=== PATIENT | female | born 1930 | race Caucasian/White ===

== ENCOUNTER → 2017-01-21 | Outpatient (CLI) | payer BC ==
[~2017-01-21] MED LIST: ACET-1175 PO; ALEN70TA4 PO; AMLO-110 PO; CETI10TA10 PO; CHOL100010 PO; DIPH25TA24 PO; ESCI1TAB6 PO; FURO-85 PO; LISI-461 PO; LORA-741 PO; MULT-506 PO; NRV5 PO; OMEG10007 PO; ONDA4TAB10 SL; POTA10CA28 PO; SIMV20TA2 PO; ZCR20 PO; [UNRECOGNIZED DRUG - CODE] PO
[2017-01-21 12:55] LABS: BLOOD UREA NITROGEN 14 mg/dl (7-18); BUN/CREATININE RATIO 13.6 (10-20); CARBON DIOXIDE 31 mmol/L (21-32); CHLORIDE 107 mmol/L (98-107); GLUCOSE 78 mg/dl (70-99); POTASSIUM 3.5 mmol/L (3.5-5.1); SODIUM 144 mmol/L (136-145)
== END | disposition home or self-care (01) ==
LOC: C.LABSALHI 09:43
PROVIDERS: ATTEND Nurse Practitioner Family
DX: I10 Essential (primary) hypertension (principal)

== ENCOUNTER 2017-06-21 20:29 | Emergency (ER) | payer BC ==
[~2017-06-21] VITALS: Ht 149.9 cm; Wt 44.2 kg
[~2017-06-21 20:29] MED LIST changes: -AMLO-110 PO; -LORA-741 PO; -ONDA4TAB10 SL; -SIMV20TA2 PO
[2017-06-21] MEDS ORDERED: ONDANSETRON INJ 2 MG/ML 2 ML VIAL IV STA (20:33)
[2017-06-21] MEDS ORDERED: SODIUM CHLORIDE 0.9% 500ML 500 ML IV STA (20:33)
--- NOTE | 2017-06-21 20:37 | EMERGENCY ROOM VISIT NOTE ---
History Report prepared by Linda: Mehdi Capone Under the Supervision of: Dr. Sean Thomas M.D. First contact with patient: 20:30 Chief Complaint: FALL Stated Complaint: Fall History of Present Illness The patient is a 87 year old female who presents to the Emergency Room with complaints of a fall that occurred this evening. This history is limited secondary to the patient's mental status. Per EMS, the patient was found with mulch in her hair. When they arrived, she was complaining of nausea, vomiting, and dizziness. A couple of minutes later, she said she had no complaints. At baseline, she is confused, but usually not this much. She is currently complaining of generalized pain and chills. She denies abdominal pain. Source of History: patient, EMS History Limited By: AMS Onset: This evening Position: other (Global) Associated Symptoms: + chills, No abdominal pain Note: She is complaining of generalized pain. Review of Systems See HPI for pertinent positives & negatives. A total of 10 systems reviewed and were otherwise negative. Past Medical & Surgical Medical Problems: (1) Dementia (2) History of hyponatremia (3) History of migraine (4) Hypercholesterolemia (5) Hypertension (6) Osteoporosis Surgical Problems: (1) History of hysterectomy (2) S/P cataract surgery Family History Hypertension Social History Smoking Status: Never Smoker Alcohol Use: none Drug Use: none Marital Status: Occupation Status: retired Current/Historical Medications Scheduled Amlodipine (Norvasc), 5 MG PO DAILY Cetirizine Hcl (Zyrtec), 5 MG PO QPM Cholecalciferol (Vitamin D), 2,000 INTER.UNIT PO DAILY Escitalopram Oxalate (Lexapro), 5 MG PO DAILY Fish Oil (Shallowater-3), 1,200 MG PO DAILY Furosemide (Lasix), 20 MG PO 3XWK Lisinopril (Zestril), 10 MG PO DAILY Multivitamin (Multivitamin), 1 TABLET PO DAILY Ondasetron Odt (Zofran Odt), 4 MG SL Q6H Oyster Shell (Oyster Calcium), 500 MG PO DAILY Potassium Chloride (Micro-K Ext Rel), 10 MEQ PO 3XWK Simvastatin (Zocor), 20 MG PO QPM Scheduled PRN Acetaminophen (Tylenol), 650 MG PO Q4-6H PRN for Pain or Fever Diphenhydramine Hcl (Benadryl), 25-50 MG PO Q4-6H PRN for ALLERGIC REACTION Lorazepam (Ativan), 0.5 MG PO BID PRN for Anxiety Allergies Coded Allergies: No Known Allergies (Unverified , 11/30/12) Physical Exam Vital Signs Date Time Temp Pulse Resp B/P (MAP) Pulse Ox O2 Delivery O2 Flow Rate FiO2 06/21/17 23:28 88 18 146/78 92 06/21/17 22:29 84 140/70 93 Room Air 06/21/17 21:54 75 19 142/81 94 Room Air 06/21/17 21:22 76 06/21/17 20:48 95 Room Air 06/21/17 20:46 36.8 77 22 185/77 95 Room Air Physical Exam GENERAL: Patient is a healthy-appearing well-nourished female. Able to walk. No signs of trauma. HEAD: Normocephalic atraumatic EYES: Ocular movements intact pupils equal and react to light OROPHARYNX mucous membranes are moist no exudates present no erythema or edema present NECK: Supple no nuchal rigidity CHEST: Good equal expansion LUNGS: Clear and equal to auscultation CARDIAC: Normal S1 and S2 ABDOMEN: Soft nontender no guarding BACK: No CVA tenderness EXTREMITIES: No pain upon palpation normal muscle strength in all groups no clubbing cyanosis or edema NEURO: Patient is pleasantly confused. Medical Decision & Procedures ER Provider Diagnostic Interpretation: Radiology results as stated below per my review and radiologist interpretation: CT OF THE HEAD WITHOUT CONTRAST CLINICAL HISTORY: Fall. Emesis. COMPARISON STUDY: Head CT April 28, 2015. CT DOSE: 756.06 mGy.cm TECHNIQUE: Helical axial images of the head were obtained without IV contrast. Automated exposure control was utilized for the study. A dose lowering technique was utilized adhering to the principles of ALARA. FINDINGS: No acute intracranial hemorrhage, midline shift or mass effect is present. Ventricular system is stable. The basilar cisterns are patent. There are no extra-axial collections. White matter hypodensity suggests small vessel disease. There are no findings to suggest acute dural sinus thrombosis or acute territorial infarct. The appearance of the brain is similar to prior exam. There is extensive intracranial vascular calcification. Apparent defect of the left posterior arch of C1 is partially imaged on this exam. This is chronic. There is no calvarial fracture. IMPRESSION: No acute intracranial findings. Electronically signed by: Iker Trimble M.D. 06/21/2017 10:18 PM Dictated Date/Time: 06/21/2017 10:14 PM CHEST ONE VIEW PORTABLE CLINICAL HISTORY: Altered third mental status. COMPARISON STUDY: Chest radiograph June 05, 2015. FINDINGS: Lung volumes are normal. No pneumothorax or pleural effusion is present. There are no evidence of pulmonary edema. Cardiomediastinal silhouette is unremarkable. No consolidation is identified. IMPRESSION: No acute cardiopulmonary findings. Electronically signed by: Iker Trimble M.D. 06/21/2017 9:02 PM Dictated Date/Time: 06/21/2017 9:[address] OF THE ABDOMEN AND PELVIS WITH CONTRAST CLINICAL HISTORY: Diffuse abdominal pain. Vomiting. Fall. COMPARISON STUDY: None. TECHNIQUE: Following IV administration of 94 mL of Optiray-320, axial images of the abdomen and pelvis were obtained from the lung bases to the proximal femurs. Images were reviewed in the axial, sagittal, and coronal planes. IV contrast was administered without complication. A dose lowering technique was utilized adhering to the principles of ALARA. FINDINGS: A 7 mm hypodense right hepatic lobe lesion likely reflects a cyst. A 1.4 cm lateral segment hepatic cyst is also present. There is no evidence of traumatic injury to the liver, spleen, adrenal glands, kidneys or pancreas. There is probable contrast within both collecting systems. This exam is mildly compromised by motion artifact. There is extensive atherosclerotic plaque of the abdominal aorta and branch vessels. There is no pancreatic ductal dilatation. Mild biliary ductal dilatation is noted. The bladder is mildly distended. There is no evidence for a bowel obstruction. A zshb-kd-kiekejeb amount of stool is noted within the colon. No acute lumbar spine or pelvic fracture is identified. There is a mild L1 compression fracture involving the superior endplate which is likely old. IMPRESSION: 1. No acute findings within the abdomen or pelvis. 2. Mild biliary ductal dilatation which could be correlated with obstructive liver function tests. 3. Moderate distention of the bladder. Electronically signed by: Iker Trimble M.D. 06/21/2017 10:30 PM Dictated Date/Time: 06/21/2017 10:18 PM Laboratory Results 06/21/17 20:35 Red Blood Count 4.43, Mean Corpuscular Volume 92.3, Mean Corpuscular Hemoglobin 30.9, Mean Corpuscular Hemoglobin Concent 33.5, Mean Platelet Volume 10.8, Neutrophils (%) (Auto) 52.6, Lymphocytes (%) (Auto) 32.4, Monocytes (%) (Auto) 11.5, Eosinophils (%) (Auto) 2.8, Basophils (%) (Auto) 0.7, Neutrophils # (Auto ) 3.20, Lymphocytes # (Auto) 1.97, Monocytes # (Auto) 0.70, Eosinophils # (Auto ) 0.17, Basophils # (Auto) 0.04 06/21/17 20:35 Test 06/21/17 20:35 06/21/17 20:59 06/21/17 21:09 06/21/17 21:45 White Blood Count 6.08 K/uL (4.8-10.8) Red Blood Count 4.43 M/uL (4.2-5.4) Hemoglobin 13.7 g/dL (12.0-16.0) Hematocrit 40.9 % (37-47) Mean Corpuscular Volume 92.3 fL (80-100) Mean Corpuscular Hemoglobin 30.9 pg (25-34) Mean Corpuscular Hemoglobin Concent 33.5 g/dl (32-36) Platelet Count 263 K/uL (130-400) Mean Platelet Volume 10.8 fL (7.4-10.4) Neutrophils (%) (Auto) 52.6 % Lymphocytes (%) (Auto) 32.4 % Monocytes (%) (Auto) 11.5 % Eosinophils (%) (Auto) 2.8 % Basophils (%) (Auto) 0.7 % Neutrophils # (Auto) 3.20 K/uL (1.4-6.5) Lymphocytes # (Auto) 1.97 K/uL (1.2-3.4) Monocytes # (Auto) 0.70 K/uL (0.11-0.59) Eosinophils # (Auto) 0.17 K/uL (0-0.5) Basophils # (Auto) 0.04 K/uL (0-0.2) RDW Standard Deviation 43.4 fL (36.4-46.3) RDW Coefficient of Variation 12.8 % (11.5-14.5) Immature Granulocyte % (Auto) 0.0 % Immature Granulocyte # (Auto) 0.00 K/uL (0.00-0.02) Est Creatinine Clear Calc Drug Dose 23.7 ml/min Estimated GFR () 51.5 Estimated GFR (Non- 44.5 BUN/Creatinine Ratio 14.9 (10-20) Calcium Level 9.8 mg/dl (8.5-10.1) Total Bilirubin 0.3 mg/dl (0.2-1) Direct Bilirubin < 0.1 mg/dl (0-0.2) Aspartate Amino Transf (AST/SGOT) 34 U/L (15-37) Alanine Aminotransferase (ALT/SGPT) 30 U/L (12-78) Alkaline Phosphatase 88 U/L (45-117) Total Creatine Kinase 59 U/L (26-192) Creatine Kinase MB 2.0 ng/ml (0.5-3.6) Creatine Kinase MB Ratio 3.4 (0-3.0) Troponin I 0.018 ng/ml (0-0.045) Total Protein 7.9 gm/dl (6.4-8.2) Albumin 4.4 gm/dl (3.4-5.0) Thyroid Stimulating Hormone (TSH) 6.850 uIu/ml (0.300-4.500) Bedside Glucose 98 mg/dl (70-90) Bedside Hemoglobin 14.3 g/dl (12.0-16.0) Bedside Hematocrit 42 % (37-47) Bedside Sodium 141 mEq/L (135-144) Bedside Potassium 3.4 mEq/L (3.3-5.0) Bedside Chloride 102 mEq/L (101-112) Bedside Total CO2 28 mEq/l (24-31) Anion Gap 16.0 mmol/L (16-25) Bedside Blood Urea Nitrogen 18 mg/dl (7-18) Bedside Creatinine 1.1 mg/dl (0.6-1.3) Bedside Glucose (other) 102 mg/dl (70-99) Bedside Ionized Calcium (Tam) 1.17 mmol/l (1.12-1.32) Urine Color YELLOW Urine Appearance CLEAR (CLEAR) Urine pH 8.0 (4.5-7.5) Urine Specific [place] 1.014 (1.000-1.030) Urine Protein NEG (NEG) Urine Glucose (UA) NEG (NEG) Urine Ketones NEG (NEG) Urine Occult Blood NEG (NEG) Urine Nitrite NEG (NEG) Urine Bilirubin NEG (NEG) Urine Urobilinogen NEG (NEG) Urine Leukocyte Esterase TRACE (NEG) Urine WBC (Auto) 1-5 /hpf (0-5) Urine RBC (Auto) 0-4 /hpf (0-4) Urine Hyaline Casts (Auto) 0 /lpf (0-5) Urine Epithelial Cells (Auto) 10-20 /lpf (0-5) Urine Bacteria (Auto) NEG (NEG) Labs reviewed by ED physician. Medications Administered Medications (Trade) Dose Ordered Sig/Balta Route Start Time Stop Time Status Last Admin Dose Admin Sodium Chloride 500 ml @ 999 mls/hr Q31M STAT IV 06/21/17 20:33 06/21/17 21:03 DC 06/21/17 21:07 999 MLS/HR Ondansetron HCl (Zofran Inj) 4 mg NOW STAT IV 06/21/17 20:33 06/21/17 20:36 DC 06/21/17 21:07 4 MG Ondansetron HCl (ZOFRAN ODT 4MG Home Pack) 1 homepack UD STAT PO 06/21/17 22:35 06/21/17 22:36 DC 06/21/17 23:28 1 HOMEPACK ECG Indication: other (Trauma) Rate (beats per minute): 69 Rhythm: normal sinus Findings: no acute ischemic change, no ectopy ED Course 2030: Past medical records reviewed. The patient was evaluated in room C11B. A complete history and physical examination was performed. 2032: Ordered Zofran Inj 4 mg IV, Sodium Chloride 500 ml @ 999 mls/hr IV 2234: Ordered Ondansetron HCl 1 homepack PO 2242: Upon reexamination the patient is resting. I discussed results and treatment plan with the patient. She verbalizes agreement and understanding. The patient is ready for discharge. Medical Decision Differential diagnosis: Etiologies such as metabolic, infection, hypo/hyperglycemia, electrolyte abnormalities, cardiac sources, intracerebral event, toxicologic, neurologic, as well as others were entertained. This is an 87-year-old female who presents emergency department with no complaints. Per EMS report the patient was vomiting and was found down at her snf. The patient was sent for CAT scan of the head as well as abdomen pelvis however there does not appear to be in any acute process going on. The patient has normal EKG along with normal CK-MB troponin fractions. An IV was established, the patient given normal saline bolus, Zofran. Repeat examination revealed much improvement the patient's symptoms. I do feel that the patient as well as to be discharged back to her snf to follow-up with her primary care physician. Patient was in agreement with the treatment plan. Medication Reconcilliation Current Medication List: was personally reviewed by me Blood Pressure Screening Patient's blood pressure: Elevated blood pressure Blood pressure disposition: Elevated BP felt to be situational Impression Primary Impression: Fall Scribe Attestation The scribe's documentation has been prepared under my direction and personally reviewed by me in its entirety. I confirm that the note above accurately reflects all work, treatment, procedures, and medical decision making performed by me. Departure Information Dispostion Home / Self-Care Prescriptions Ondasetron Odt (ZOFRAN ODT) 4 Mg Tab 4 MG SL Q6H for Nausea, #6 TAB Prov: Sean Thomas MD 06/21/17 Referrals Kitty GreyC.R.N.P. (PCP) Forms HOME CARE DOCUMENTATION FORM, IMPORTANT VISIT INFORMATION Patient Instructions ED Fall Dizziness Weakn Balance, ED Gastroenteritis Viral, My [facility], Nausea Vomit Control Additional Instructions You have been examined and treated today on an emergency basis only. This is not a substitute for, or an effort to provide, complete comprehensive medical care. It is impossible to recognize and treat all injuries or illnesses in a single emergency department visit. It is therefore important that you follow up closely with Your PCP. Call as soon as possible for an appointment. Thank you for your time and consideration. I look forward to speaking with you again soon. Please don't hesitate to call us if you have any questions. Problem Qualifiers Primary Impression: Fall Encounter type: initial encounter Qualified Codes: W19.XXXA - Unspecified fall, initial encounter
[2017-06-21] MEDS ORDERED: OPTIRAY 320 IV PRN (20:45)
[2017-06-21 20:46] VITALS: TEMP 36.8; Ht 149.9 cm; Wt 44.2 kg
[2017-06-21 20:48] VITALS: O2SAT 95
[2017-06-21 20:59] LABS: HEMATOCRIT 40.9 % (37-47); MEAN CELL VOLUME 92.3 fL (80-100); MEAN CORPUSCULAR HEMOGLOBIN 30.9 pg (25-34); MEAN CORPUSCULAR HGB CONC 33.5 g/dl (32-36); RED BLOOD COUNT 4.43 M/uL (4.2-5.4); WHITE BLOOD COUNT 6.08 K/uL (4.8-10.8)
[2017-06-21 21:00] LABS: BASO % 0.7 %; BASO ABS # 0.04 K/uL (0-0.2); COMPLETE YES; EOS % 2.8 %; LYMPH % 32.4 %; LYMPH ABS # 1.97 K/uL (1.2-3.4); MEAN PLATELET VOLUME 10.8 fL (7.4-10.4); MONO % 11.5 %; NEUT % 52.6 %; PLATELET COUNT 263 K/uL (130-400)
--- NOTE | 2017-06-21 21:03 | DIAGNOSTIC IMAGING REPORT ---
CHEST ONE VIEW PORTABLE CLINICAL HISTORY: Altered third mental status. COMPARISON STUDY: Chest radiograph June 05, 2015. FINDINGS: Lung volumes are normal. No pneumothorax or pleural effusion is present. There are no evidence of pulmonary edema. Cardiomediastinal silhouette is unremarkable. No consolidation is identified. IMPRESSION: No acute cardiopulmonary findings. Electronically signed by: Iker Trimble M.D. 06/21/2017 9:02 PM Dictated Date/Time: 06/21/2017 9:01 PM
[2017-06-21 21:21] LABS: ISTAT CREATININE 1.1 mg/dl (0.6-1.3); ISTAT HEMOGLOBIN 14.3 g/dl (12.0-16.0); ISTAT IONIZED CALCIUM 1.17 mmol/l (1.12-1.32)
[2017-06-21 21:25] LABS: ALT/SGPT 30 U/L (12-78); BLOOD UREA NITROGEN 16 mg/dl (7-18); BUN/CREATININE RATIO 14.9 (10-20); CALCIUM 9.8 mg/dl (8.5-10.1); CARBON DIOXIDE 26 mmol/L (21-32); CHLORIDE 103 mmol/L (98-107); GLUCOSE 103 mg/dl (70-99); POTASSIUM 3.3 mmol/L (3.5-5.1); SODIUM 139 mmol/L (136-145)
[2017-06-21 21:36] LABS: ALKALINE PHOSPHATASE 88 U/L (45-117); AST/SGOT 34 U/L (15-37); CKMB/CK RATIO 3.4 (0-3.0)
[2017-06-21] MEDS ORDERED: AMLO-110 PO (21:38)
[2017-06-21] MEDS ORDERED: LISI-461 PO (21:40)
[2017-06-21] MEDS ORDERED: SIMV20TA2 PO (21:42)
[2017-06-21] MEDS ORDERED: LORA-741 PO (21:47)
[2017-06-21 22:18] LABS: URINE APPEARANCE CLEAR (CLEAR); URINE BILIRUBIN NEG (NEG); URINE COLOR YELLOW; URINE NITRITE NEG (NEG); URINE SPECIFIC GRAVITY 1.014 (1.000-1.030); UROBILINOGEN NEG (NEG)
--- NOTE | 2017-06-21 22:19 | DIAGNOSTIC IMAGING REPORT ---
CT OF THE HEAD WITHOUT CONTRAST CLINICAL HISTORY: Fall. Emesis. COMPARISON STUDY: Head CT April 28, 2015. CT DOSE: 756.06 mGy.cm TECHNIQUE: Helical axial images of the head were obtained without IV contrast. Automated exposure control was utilized for the study. A dose lowering technique was utilized adhering to the principles of ALARA. FINDINGS: No acute intracranial hemorrhage, midline shift or mass effect is present. Ventricular system is stable. The basilar cisterns are patent. There are no extra-axial collections. White matter hypodensity suggests small vessel disease. There are no findings to suggest acute dural sinus thrombosis or acute territorial infarct. The appearance of the brain is similar to prior exam. There is extensive intracranial vascular calcification. Apparent defect of the left posterior arch of C1 is partially imaged on this exam. This is chronic. There is no calvarial fracture. IMPRESSION: No acute intracranial findings. Electronically signed by: Iker Trimble M.D. 06/21/2017 10:18 PM Dictated Date/Time: 06/21/2017 10:14 PM
[2017-06-21 22:31] LABS: MANUAL MICROSCOPIC REQUIRED? NO; REVIEW REQ? NO
--- NOTE | 2017-06-21 22:32 | DIAGNOSTIC IMAGING REPORT ---
CT OF THE ABDOMEN AND PELVIS WITH CONTRAST CLINICAL HISTORY: Diffuse abdominal pain. Vomiting. Fall. COMPARISON STUDY: None. TECHNIQUE: Following IV administration of 94 mL of Optiray-320, axial images of the abdomen and pelvis were obtained from the lung bases to the proximal femurs. Images were reviewed in the axial, sagittal, and coronal planes. IV contrast was administered without complication. A dose lowering technique was utilized adhering to the principles of ALARA. FINDINGS: A 7 mm hypodense right hepatic lobe lesion likely reflects a cyst. A 1.4 cm lateral segment hepatic cyst is also present. There is no evidence of traumatic injury to the liver, spleen, adrenal glands, kidneys or pancreas. There is probable contrast within both collecting systems. This exam is mildly compromised by motion artifact. There is extensive atherosclerotic plaque of the abdominal aorta and branch vessels. There is no pancreatic ductal dilatation. Mild biliary ductal dilatation is noted. The bladder is mildly distended. There is no evidence for a bowel obstruction. A utho-vo-eheuzutd amount of stool is noted within the colon. No acute lumbar spine or pelvic fracture is identified. There is a mild L1 compression fracture involving the superior endplate which is likely old. IMPRESSION: 1. No acute findings within the abdomen or pelvis. 2. Mild biliary ductal dilatation which could be correlated with obstructive liver function tests. 3. Moderate distention of the bladder. Electronically signed by: Iker Trimble M.D. 06/21/2017 10:30 PM Dictated Date/Time: 06/21/2017 10:18 PM
[2017-06-21] MEDS ORDERED: ONDANSETRON HOME PACK 4MG OD TAB PO STA (22:35)
[2017-06-21] MEDS ORDERED: ONDA4TAB10 SL (22:36)
[2017-06-21 23:28] VITALS: BP 146/78; PULSE 88; O2SAT 92
== END 2017-06-21 23:28 | disposition home or self-care (01) ==
LOC: EDBD 20:29 → C.EDC 20:32
DX: R11.2 Nausea with vomiting, unspecified (principal); W19.XXXA Unspecified fall, initial encounter; F03.90 Unspecified dementia, unspecified severity, without behavioral disturbance, psychotic disturbance, mood disturbance, and anxiety; E78.00 Pure hypercholesterolemia, unspecified; I10 Essential (primary) hypertension; M19.90 Unspecified osteoarthritis, unspecified site; Z82.49 Family history of ischemic heart disease and other diseases of the circulatory system